=== PATIENT | male | born 1965 | race Caucasian/White ===

== ENCOUNTER 2019-09-16 17:05 | Emergency (ER) | payer BC, SELFPAY ==
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
[2019-09-16 17:08] VITALS: BP 157/98; PULSE 75; RESP 16; TEMP 36.7; O2SAT 100
[2019-09-16 18:05] VITALS: BP 155/94; PULSE 66; RESP 17; O2SAT 99
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
[2019-09-16 20:41] VITALS: BP 177/110; PULSE 67; RESP 15; O2SAT 98
[2019-09-16 22:56] VITALS: BP 168/89; PULSE 85; RESP 18; O2SAT 100
[2019-09-16 23:20] VITALS: BP 174/99; PULSE 56; RESP 19; O2SAT 97
[2019-09-17 00:40] VITALS: BP 166/81; PULSE 55; O2SAT 99
[2019-09-17 01:53] VITALS: BP 166/90; RESP 16
[2019-09-17] MEDS: levETIRAcetam 500 MG TABLET PO (01:53)
[2019-09-17 01:54] VITALS: BP 166/90
== END 2019-09-17 01:20 | disposition home or self-care (01) ==
PROVIDERS: Emergency Provider Emergency Medicine
DX: S06.5X0A Traumatic subdural hemorrhage without loss of consciousness, initial encounter (principal); S00.81XA Abrasion of other part of head, initial encounter; V17.4XXA Pedal cycle driver injured in collision with fixed or stationary object in traffic accident, initial encounter
CPT/HCPCS: 70450; 70486; 99284; A9270

== ENCOUNTER 2020-12-03 15:50 | Emergency (ER) | payer BC, SELFPAY ==
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
--- NOTE | ~2020-12-03 | XR_ITS ---
EXAMINATION: XR shoulder LT min 2V DATE: 12/03/2020 16:13 INDICATION: Left shoulder pain. TECHNIQUE: 4 views of left shoulder were obtained. COMPARISON: None. FINDINGS: Bone alignment is normal. No fracture. Joint spaces are well maintained. IMPRESSION: 1. No fracture. Reviewed, dictated and finalized at location A. IMPRESSION: 1. No fracture.
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
--- NOTE | ~2020-12-03 | XR_ITS ---
EXAMINATION: XR ribs LT 2V w CXR 2V DATE: 12/03/2020 16:13 INDICATION: Left chest injury. TECHNIQUE: Frontal and lateral views of the chest and 3 views of the left ribs were obtained. COMPARISON: None. FINDINGS: CHEST TWO VIEWS: There is no pneumonia, pleural effusion, or pneumothorax. The heart size is normal. LEFT RIBS: There is no rib fracture. IMPRESSION: 1. No rib fracture. Reviewed, dictated and finalized at location A. IMPRESSION: 1. No rib fracture.
[2020-12-03 15:53] VITALS: BP 181/100; PULSE 79; RESP 20; TEMP 37; O2SAT 99
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
[2020-12-03 17:48] VITALS: BP 166/82; PULSE 77; RESP 16; O2SAT 100
== END 2020-12-03 17:50 | disposition home or self-care (01) ==
PROVIDERS: Emergency Provider Nurse Practitioner; PCP Internal Medicine
DX: S09.90XA Unspecified injury of head, initial encounter (principal); S49.92XA Unspecified injury of left shoulder and upper arm, initial encounter; R07.81 Pleurodynia; R03.0 Elevated blood-pressure reading, without diagnosis of hypertension; V18.0XXA Pedal cycle driver injured in noncollision transport accident in nontraffic accident, initial encounter; Y93.55 Activity, bike riding
CPT/HCPCS: 70450; 71046; 71100; 72125; 73030; 99284

== ENCOUNTER 2022-04-20 17:18 | Emergency (ER) | payer BC, SELFPAY ==
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
[2022-04-20 17:52] VITALS: BP 166/94; PULSE 66; RESP 14; TEMP 36.7; O2SAT 98
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
[2022-04-20 20:25] VITALS: BP 181/114; PULSE 70; RESP 16; O2SAT 97
== END 2022-04-20 20:26 | disposition home or self-care (01) ==
PROVIDERS: Emergency Provider Physician Assistant; PCP Internal Medicine
DX: S70.02XA Contusion of left hip, initial encounter (principal); V18.0XXA Pedal cycle driver injured in noncollision transport accident in nontraffic accident, initial encounter
CPT/HCPCS: 73502; 99283

== ENCOUNTER 2023-02-03 20:13 | Emergency (ER) | payer BC, SELFPAY ==
--- NOTE | ~2023-02-03 | XR_ITS ---
EXAMINATION: XR chest 1V portable DATE: 02/04/2023 02:09 INDICATION: Weakness. Hypertension. TECHNIQUE: A single frontal view of the chest was obtained. COMPARISON: Chest 2 views 12/03/2020 FINDINGS: There is mild atelectasis at right lung base. No pleural effusion or pneumothorax. The hear t size is normal. IMPRESSION: 1. Mild atelectasis at right lung base. Reviewed, dictated and finalized at location E.
[2023-02-03 20:26] VITALS: BP 195/92; PULSE 61; RESP 18; TEMP 36.4; O2SAT 99
[2023-02-03 22:23] VITALS: BP 176/113; PULSE 52; RESP 18; TEMP 36.4; O2SAT 99
--- NOTE | 2023-02-04 01:45 | ECG_ITS ---
Measurements Intervals Barre Rate: 55 P: 51 TN: 182 QRS: 27 QRSD: 94 T: 25 QT: 419 QTc: 404 Interpretive Statements SINUS BRADYCARDIA INCOMPLETE RIGHT BUNDLE BRANCH BLOCK VOLTAGE CRITERIA FOR LVH BASELINE ARTIFACT- V2 BORDERLINE ECG NO PREVIOUS ECG AVAILABLE FOR COMPARISON Electronically Signed On 02-04-2023 7:30:35 CDT by Glenn Osorio D.O.
--- NOTE | 2023-02-04 01:45 | ED.RECABL ---
HPI - Recheck/Abnormal Lab/Rx General Chief Complaint: Recheck/Abnormal Lab/Rx Stated Complaint: htn 190s, shaky Time Seen by Provider: 02/04/23 01:21 History of Present Illness HPI narrative: 57 y/o M with a history of HTN reports for evaluation for elevated BP since yesterday. Pt states his BP is normally 140-150 systolic, however has been 170-190 since last night. Pt states he normally checks his blood pressure once a week, however took his blood pressure last night today because he felt like his blood pressure was high. He is reporting generalized body aches, generalized weakness, slight headache in the left side of his head, and paresthesias to his hands and feet. He is also reporting feeling shaky with some anxiety. He has a history of migraines and states this headache is not different from his normal headaches. He denies vision changes, focal numbness or weakness, chest pain or shortness of breath, abdominal pain, nausea, vomiting, diarrhea, dysuria or hematuria, back pain, neck pain, head or neck injury or trauma. The patient is currently taking supplements to treat his hypertension. Used to take lisinopril and discontinued it due to a cough, and then started metoprolol but discontinued because he did not like the way it made him feel. Related Data Allergies Allergy/AdvReac Type Severity Reaction Status Date / Time Sulfa (Sulfonamide Allergy Intermediate Dyspnea / Verified 04/20/22 19:31 Antibiotics) SOB Review of Systems Review of Systems: CONSTITUTIONAL: Denies fever, chills EYES: Denies visual changes, redness, or discharge. ENT: Denies rhinorrhea, congestion, sore throat, or otalgia. CARDIOVASCULAR: Denies chest pain, palpitations, or edema. RESPIRATORY: Denies cough or dyspnea. GASTROINTESTINAL: Denies abdominal pain, nausea, vomiting, or diarrhea. GENITOURINARY: Denies dysuria or hematuria. SKIN: Denies rash or itching. MUSCULOSKELETAL: Denies back pain, joint pain, or myalgia. NEUROLOGIC: See HPI PSYCHIATRIC: Denies anxiety or depression. [facility] Past Medical History Medical History Contusion of shoulder, left Patient denies significant medical history Vertigo Family History Family History Other Cerebrovascular accident Diabetes mellitus Hypertension Social History Social History Smoking status: Never smoker Alcohol intake: current Drinks per week: 5 Substance use: never Living arrangements: with family Gender identity (if verbalized by the patient): Male Exam Narrative: GENERAL: Well-appearing, in no acute distress. Patient resting comfortably in exam bed. He is pleasant and conversational. HEAD: Normocephalic EYES: PERRLA ENT: Nares clear. Mucous membranes moist. Oropharynx without tonsillar hypertrophy exudate or other lesions. NECK: Supple. No nuchal rigidity CHEST: No respiratory distress. Clear to auscultation, no adventitious breath sounds. HEART: Regular rate and rhythm. No murmur heard. Normal peripheral pulses. ABDOMEN: Soft, nontender, normal active bowel sounds. EXTREMITIES: Normal range of motion. No edema. SKIN: Warm, dry, no rash. NEURO: No focal deficits. Alert and oriented x3. PSYCH: Normal mood and affect. Course Vital Signs Vital signs: Vital Signs Temperature 97.6 F 02/03/23 20:26 Pulse Rate 61 02/03/23 20:26 Respiratory Rate 18 02/03/23 20:26 Blood Pressure 195/92 H 02/03/23 20:26 Pulse Oximetry 99 02/03/23 20:26 Oxygen Delivery Room Air 02/03/23 20:26 Temperature 97.6 F 02/03/23 22:23 Pulse Rate 56 L 02/04/23 02:44 Respiratory Rate 16 02/04/23 02:44 Blood Pressure 159/91 H 02/04/23 02:44 Pulse Oximetry 96 02/04/23 02:44 Oxygen Delivery Room Air 02/03/23 20:26 MDM - Recheck/Abnormal Lab/Rx MDM Narrative Medical deci
[2023-02-04] MEDS: LORazepam INJ (*CRX) 2 MG/ML VIAL 1 MG IV PUSH (02:37)
[2023-02-04] MEDS: SODIUM CHLORIDE 0.9% IV 1,000 ML 999 ML IV CONT (02:37)
[2023-02-04 02:44] VITALS: BP 159/91; PULSE 56; RESP 16; O2SAT 96
[2023-02-04 02:46] VITALS: BP 153/98; PULSE 71; RESP 16; O2SAT 94
[2023-02-04 02:47] LABS: Basophils Absolute Auto 0.1 K/mm3 (0.0-0.1); Eosinophils Absolute Auto 0.7 K/mm3 (0-0.3); Eosinophils Percent Auto 9.5 % (0-4.4); Hematocrit 43.3 % (42.0-52.0); Hemoglobin 15.2 g/dL (14.0-18.0); Immature Granulocyte Absolute 0.01 K/mm3 (0.00-0.031); Immature Granulocyte Percent A 0.1 % (0-0.5); Lymphocytes Absolute Auto 2.14 K/mm3 (0.9-3.2); Lymphocytes Percent Auto 31.4 % (18.3-44.2); Mean Corpuscular HGB Conc 35.1 g/dl (32-36); Mean Corpuscular Hemoglobin 33.3 pg (26-34); Mean Platelet Volume 9.3 fl (7.4-10.4); Monocytes Absolute Auto 0.8 K/mm3 (0.1-0.6); Monocytes Percent Auto 11.6 % (2.6-8.5); Neutrophils Absolute Auto 3.2 K/mm3 (1.3-6.7); Neutrophils Percent Auto 46.4 % (45.5-73.1); Platelet Count Result 247 k/mm3 (150-375); Red Blood Count 4.56 M/mm3 (4.6-6.20); Red Cell Distribution Width 12.2 % (11.5-14.5); White Blood Count 6.8 K/mm3 (4.5-10.0)
[2023-02-04 03:14] LABS: Alanine Aminotransferase 18 U/L (6-50); Alkaline Phosphatase 56 U/L (38-126); Anion Gap 2 mmol/L (8-16); Aspartate Amino Transferase 29 U/L (17-59); Bilirubin,Total 0.9 mg/dL (0.2-1.3); Blood Urea Nitrogen 14 mg/dL (9-20); Calcium 9.1 mg/dL (8.4-10.2); Carbon Dioxide 30 mmol/L (22-30); Chloride 103 mmol/L (98-107); Estimated CRCL calculation 63 ml/min; Estimated Glomerular Filt Rate > 60; Glucose 110 mg/dL (65-110); Potassium 4.2 mmol/L (3.4-5.0); Sodium 135 mmol/L (137-145)
[2023-02-04 03:19] LABS: Influenza A QL RT-PCR Negative (Negative); Influenza B QL RT-PCR Negative (Negative); SARS-CoV-2 RNA PCR Negative (Negative)
[2023-02-04 03:31] VITALS: BP 141/91; PULSE 68; RESP 16; O2SAT 98
== END 2023-02-04 04:10 | disposition home or self-care (01) ==
PROVIDERS: Emergency Provider Physician Assistant; PCP Internal Medicine
DX: I10 Essential (primary) hypertension (principal); R20.2 Paresthesia of skin; Z20.822 Contact with and (suspected) exposure to COVID-19
CPT/HCPCS: 36415; 71045; 80053; 85025; 87636; 93005; 96361; 96374; 99284; J2060; J7030

== ENCOUNTER 2023-02-06 20:59 | Emergency (ER) | payer BC, SELFPAY ==
--- NOTE | ~2023-02-06 | CT_ITS ---
Clinical Indication: Shortness of breath CT Scan of the Chest with Contrast: Technique: Contiguous sections were acquired throughout the chest after intravenous administration of 100 cc of Omnipaque 350. Dose reduction technique was used on this scan by utilizing automated expos ure control and iterative reconstruction technique. The dose-length product (DLP) was 241.14 mGy-cm. Findings: There is no evidence of any significant mediastinal, hilar or axillary lymphadenopathy. There is no f illing defect in the pulmonary arterial tree to suggest pulmonary embolus. There is no evidence of ao rtic dissection or aneurysm. There is no evidence of pleural or pericardial effusion. The lungs are clear. No pulmonary nodules or infiltrates are noted. Images through the upper abdomen reveal calcified gallstones. Impression: No evidence of pulmonary embolus, aortic dissection, or aortic aneurysm. Clear lungs. Cholelithiasis. Reviewed, dictated and finalized at [facility]. Impression: No evidence of pulmonary embolus, aortic dissection, or aortic aneurysm. Clear lungs. Cholelithiasis.
[2023-02-06 21:12] VITALS: BP 188/106; PULSE 58; RESP 20; TEMP 36.4; O2SAT 96
--- NOTE | 2023-02-06 21:21 | PC.NURSE ---
provider aware of patient's triage complaints and vital signs. no orders at this time. will recheck vitals in about 30 mins. patient aware to come to triage with any new changes
[2023-02-06 22:53] VITALS: BP 177/98; PULSE 48; RESP 14; O2SAT 98
[2023-02-06 22:54] VITALS: BP 177/98; PULSE 55; RESP 12; O2SAT 99
[2023-02-06 23:01] VITALS: BP 162/99; PULSE 50; RESP 12; O2SAT 100
[2023-02-06 23:15] VITALS: BP 176/97; PULSE 53; RESP 16; O2SAT 99
[2023-02-06 23:46] VITALS: BP 157/101; PULSE 56; RESP 12; O2SAT 98
[2023-02-07] VITALS (10 sets, daily range): BP systolic 130–170; BP diastolic 56–106; PULSE 51–74; RESP 13–17; O2SAT 97–100
--- NOTE | 2023-02-07 00:54 | ED.GENADULT ---
HPI - General Adult General Chief complaint: Recheck/Abnormal Lab/Rx Stated complaint: high blood pressure Time Seen by Provider: 02/06/23 22:45 History of Present Illness HPI narrative: Patient presents to the emergency department with his with concerns for persistent hypertension. He notes he had a history of high blood pressure but did not want to take medications for it he did not react well to the lisinopril or metoprolol. He was also having episodes of shortness of breath. Denies a sensation of feeling like he cannot take a full breath. However he used to compete in mountain biking competitions and states he gets too short of breath now to do so. He still rides his bike regularly. His primary care provider had ordered a PFT that was unremarkable. He was in the emergency department 3 days ago for similar symptoms. Labs and chest x-ray normal. His symptoms were relieved with Ativan at that time. He also has paresthesias that move around with his shortness of breath. Patient is concerned about his blood pressure and his health. He was reassured however still worried. His significant other is also worried about his blood pressure and they are wondering why it is consistently elevated. Is very pleasant. And is in no distress. Related Data Allergies Allergy/AdvReac Type Severity Reaction Status Date / Time Sulfa (Sulfonamide Allergy Intermediate Dyspnea / Verified 02/06/23 22:56 Antibiotics) SOB Review of Systems Review of Systems: Review of systems negative except what is documented in the HPI PMFSH Past Medical History Medical History Contusion of shoulder, left Patient denies significant medical history Vertigo Family History Family History Other Cerebrovascular accident Diabetes mellitus Hypertension Social History Social History Smoking status: Never smoker Alcohol intake: current Drinks per week: 5 Substance use: never Living arrangements: with family Gender identity (if verbalized by the patient): Male Exam Narrative: GENERAL: Well-appearing, well-nourished, and in no acute distress. HEAD: Normocephalic, atraumatic. EYES: PERRLA and EOMI. ENT: Nares clear, no rhinorrhea or epistaxis. Mucous membranes moist. NECK: Supple. CHEST: Clear to auscultation. No respiratory distress. HEART: Regular rate and rhythm. ABDOMEN: Soft, nontender, nondistended. EXTREMITIES: Normal range of motion. No edema. SKIN: Warm, dry, no rash. NEURO: No focal deficits. Alert and oriented x3. PSYCH: Normal mood and affect. Course Course Emergency Course: Differential diagnosis includes but not limited to anxiety, hyper awareness of health, PE, pneumonia, congestive heart failure Recent evaluation unremarkable but patient and family very concerned. Additional work-up including D-dimer procalcitonin and BNP added to look for possible cause of his shortness of breath Telemetry ordered due to bradycardia and shortness of breath to evaluate for dysrhythmias. Evaluated by myself. Rhythm sinus ciro Rate 56 Vital Signs Vital signs: Vital Signs Temperature 36.4 C 02/06/23 21:12 Pulse Rate 58 L 02/06/23 21:12 Respiratory Rate 20 02/06/23 21:12 Blood Pressure 188/106 H 02/06/23 21:12 Pulse Oximetry 96 02/06/23 21:12 Oxygen Delivery Room Air 02/06/23 21:12 Temperature 36.4 C 02/06/23 21:12 Pulse Rate 60 02/07/23 03:36 Respiratory Rate 15 02/07/23 03:36 Blood Pressure 130/56 L 02/07/23 03:36 Pulse Oximetry 98 02/07/23 03:36 Oxygen Delivery Room Air 02/06/23 22:53 Medical Decision Making [facility] Narrative Medical decision making narrative: DDimer elevated, ct chest ordered Repeat blood pressure improved CT chest negative for PE, incidental findings gallstones Vital Signs
[2023-02-07 00:56] LABS: D Dimer 0.61 ug/mL (<0.48)
[2023-02-07 01:04] LABS: NT Pro B Type Natriuretic Pept < 20 pg/mL (19.9-100); Troponin I < 0.012 ng/mL (0.000-0.034)
[2023-02-07 03:51] LABS: Troponin I < 0.012 ng/mL (0.000-0.034)
[2023-02-07] MEDS: diphenhydrAMINE HCl INJ 50 MG/ML VIAL 25 MG IV PUSH (05:08)
[2023-02-07] MEDS: METOCLOPRAMIDE HCL INJ 10 MG/2 ML VIAL IV PUSH (05:08)
[2023-02-07] MEDS: IBUPROFEN 600 MG TABLET PO (05:08)
== END 2023-02-07 05:41 | disposition home or self-care (01) ==
PROVIDERS: Emergency Provider Emergency Medicine; PCP Internal Medicine
DX: I10 Essential (primary) hypertension (principal); R06.00 Dyspnea, unspecified; K80.20 Calculus of gallbladder without cholecystitis without obstruction
CPT/HCPCS: 36415; 71275; 83880; 84484; 85380; 96374; 96375; 99284; A9270; J1200; J2765; Q9967

== ENCOUNTER 2023-04-24 23:16 | Emergency (ER) | payer BC, SELFPAY ==
--- NOTE | ~2023-04-24 | XR_ITS ---
EXAMINATION: XR chest 2V DATE: 04/24/2023 23:37 INDICATION: Tachycardia. Hypertension. TECHNIQUE: Frontal and lateral views of the chest were obtained. COMPARISON: Chest single view 02/04/2023, chest CT 02/07/2023 FINDINGS: There is no pneumonia, pleural effusion, or pneumothorax. The heart size is normal. IMPRESSION: 1. No acute cardiopulmonary disease. Reviewed, dictated and finalized at location E. AGING ASSEMBLER
--- NOTE | 2023-04-24 23:19 | ECG_ITS ---
Measurements Intervals [place] Rate: 61 P: 69 ID: 162 QRS: 52 QRSD: 98 T: 44 QT: 429 QTc: 434 Interpretive Statements SINUS RHYTHM POSSIBLE LEFT ATRIAL ENLARGEMENT [-0.1mV P WAVE IN V1/V2] POSSIBLE RIGHT VENTRICULAR CONDUCTION DELAY [RSR (QR) IN V1/V2] POSSIBLE LEFT VENTRICULAR HYPERTROPHY [VOLTAGE CRITERIA PLUS LAE OR QRS WIDENING] SMALL U WAVES ARE PRESENT, CONSIDER HYPOKALEMIA COMPARED TO ECG 02/04/2023 02:50:42 SINUS RHYTHM NOW PRESENT T-WAVE ABNORMALITY MORE PRONOUNCED Electronically Signed On 04-25-2023 13:27:35 VEHICLE WASHER by Angelica Hawk M.D.
[2023-04-24 23:23] VITALS: BP 172/74; PULSE 68; RESP 16; TEMP 36.2; O2SAT 98
[2023-04-24 23:35] LABS: Basophils Absolute Auto 0.1 K/mm3 (0.0-0.1); Basophils Percent Auto 1.3 % (0.2-1.2); Eosinophils Absolute Auto 1.3 K/mm3 (0-0.3); Hematocrit 43.4 % (42.0-52.0); Hemoglobin 15.2 g/dL (14.0-18.0); Immature Granulocyte Absolute 0.01 K/mm3 (0.00-0.031); Immature Granulocyte Percent A 0.1 % (0-0.5); Lymphocytes Absolute Auto 2.65 K/mm3 (0.9-3.2); Lymphocytes Percent Auto 31.4 % (18.3-44.2); Mean Corpuscular Hemoglobin 32.6 pg (26-34); Mean Corpuscular Volume 93.1 fl (80-100); Mean Platelet Volume 9.2 fl (7.4-10.4); Monocytes Absolute Auto 0.8 K/mm3 (0.1-0.6); Monocytes Percent Auto 9.7 % (2.6-8.5); Neutrophils Absolute Auto 3.6 K/mm3 (1.3-6.7); Neutrophils Percent Auto 42.5 % (45.5-73.1); Platelet Count Result 265 k/mm3 (150-375); Red Blood Count 4.66 M/mm3 (4.6-6.20); Red Cell Distribution Width 12.1 % (11.5-14.5); White Blood Count 8.4 K/mm3 (4.5-10.0)
[2023-04-24 23:46] LABS: Alanine Aminotransferase 22 U/L (6-50); Albumin Level 4.5 g/dL (3.5-5.1); Alkaline Phosphatase 58 U/L (38-126); Anion Gap 8 mmol/L (8-16); Aspartate Amino Transferase 37 U/L (17-59); Bilirubin,Total 0.6 mg/dL (0.2-1.3); Blood Urea Nitrogen 17 mg/dL (9-20); Calcium 9.9 mg/dL (8.4-10.2); Carbon Dioxide 26 mmol/L (22-30); Chloride 103 mmol/L (98-107); Estimated CRCL calculation 58 ml/min; Estimated Glomerular Filt Rate > 60; Glucose 107 mg/dL (65-110); Lipase 69 U/L (23-300); Potassium 4.5 mmol/L (3.4-5.0); Sodium 137 mmol/L (137-145)
[2023-04-24 23:46] LABS: Partial Thromboplastin Time 30.2 SECONDS (22.3-36.8)
[2023-04-24 23:57] LABS: Troponin I < 0.012 ng/mL (0.000-0.034)
[2023-04-25 01:53] VITALS: BP 171/93; PULSE 65; PULSE 67; RESP 12; TEMP 36.6; O2SAT 100
[2023-04-25 01:54] VITALS: O2SAT 100
[2023-04-25 02:44] VITALS: BP 152/97; PULSE 32; RESP 14
[2023-04-25 03:05] LABS: Troponin I < 0.012 ng/mL (0.000-0.034)
--- NOTE | 2023-04-25 03:22 | ED.CHESTPAIN ---
HPI - Chest Pain General Chief Complaint: Chest Pain Stated Complaint: high blood pressure Time Seen by Provider: 04/25/23 02:06 History of Present Illness HPI narrative: Patient is a 57-year-old male with history of hypertension presenting with chest pain. Patient states that over the last several months he has had similar episodes where he has left-sided chest pain associated with tingling in his extremities. States that his hands and feet very cold lately which is not normal for him. He has seen Cardiology who started him on amlodipine. He actually had a stress test scheduled for today which he canceled previously as he thought his symptoms had resolved. States that he sometimes has significant palpitations. He denies shortness of breath, diaphoresis, nausea or vomiting, leg swelling. No weakness, vision or speech changes. No further complaints. Related Data Allergies Allergy/AdvReac Type Severity Reaction Status Date / Time Sulfa (Sulfonamide Allergy Intermediate Dyspnea / Verified 02/06/23 22:56 Antibiotics) SOB Review of Systems Review of Systems: All systems reviewed & are unremarkable except as noted in HPI and below PMFSH Past Medical History Medical History Contusion of shoulder, left Patient denies significant medical history Vertigo Family History Family History Other Cerebrovascular accident Diabetes mellitus Hypertension Social History Social History Smoking status: Never smoker Alcohol intake: current Drinks per week: 5 Substance use: never Living arrangements: with family Gender identity (if verbalized by the patient): Male Exam Narrative: GENERAL: Well-appearing, In no acute distress, pleasant and cooperative HEAD: Normocephalic, atraumatic. EYES: PERRLA and EOMI. ENT: grossly unremarkable NECK: Supple. CHEST: Clear to auscultation. No respiratory distress. HEART: Regular rate and rhythm. No murmur heard. Normal peripheral pulses. ABDOMEN: Soft, nontender, nondistended EXTREMITIES: Normal range of motion. No edema. SKIN: Warm, dry, no rash. NEURO: No focal deficits. Alert and oriented x3. PSYCH: Normal mood and affect. Course Vital Signs Vital signs: Vital Signs Temperature 97.1 F L 12/04/23 23:23 Pulse Rate 68 04/24/23 23:23 Respiratory Rate 16 04/24/23 23:23 Blood Pressure 172/74 H 04/24/23 23:23 Pulse Oximetry 98 04/24/23 23:23 Oxygen Delivery Room Air 04/24/23 23:23 Temperature 97.9 F 04/25/23 01:53 Pulse Rate 32 L 04/25/23 02:44 Respiratory Rate 14 04/25/23 02:44 Blood Pressure 152/97 H 04/25/23 02:44 Pulse Oximetry 100 04/25/23 01:54 Oxygen Delivery Room Air 04/25/23 01:54 MDM - Chest Pain MDM Narrative Medical decision making narrative: 57-year-old male presenting with chest pain earlier today. Patient is hypertensive, otherwise vitals are within normal limits. Exam is unremarkable. EKG per my interpretation shows normal sinus rhythm, normal axis and intervals, nonspecific T-wave changes, no ST elevations or depressions. It appears similar to prior from January. Blood work is unremarkable. Troponins undetectable x2. Feel he is safe for outpatient management. Advised that he call his gender studies professor and reschedule his stress test. Also advised PCP follow-up. Appropriate return precautions given. Patient was understanding and agreeable with plan. Discharged in stable condition. Differential Diagnosis Differential diagnosis: Likely fracture of rib, atypical chest pain, st elevation myocardial infarction, costochondritis, chest pain and other Medical Records Data Attestation: I reviewed the patient's medical records. Lab Data Attestation: I reviewed the patient's lab results. 04/24/23 23:29 04/24/23 23:3
== END 2023-04-25 03:34 | disposition home or self-care (01) ==
PROVIDERS: Emergency Provider Emergency Medicine; PCP Internal Medicine
DX: R07.89 Other chest pain (principal); I10 Essential (primary) hypertension; R94.31 Abnormal electrocardiogram [ECG] [EKG]
CPT/HCPCS: 36415; 71046; 80053; 83690; 84484; 85025; 85610; 85730; 93005; 99284

== ENCOUNTER 2023-05-25 03:55 | Emergency (ER) | payer BC, SELFPAY ==
--- NOTE | ~2023-05-25 | XR_ITS ---
Clinical Indication: Hypertension PA and lateral views of the chest: Comparison: 04/24/2023 Findings: The lungs are clear, without evidence of focal consolidation or pleural effusion. Cardiome diastinal silhouette is within normal limits. Bones and soft tissues are unremarkable. Impression: Normal chest. Reviewed, dictated and finalized at location . BUILDER Impression: Normal chest.
[2023-05-25 03:58] VITALS: BP 159/92; PULSE 67; RESP 18; TEMP 37.1; O2SAT 96
--- NOTE | 2023-05-25 04:07 | ECG_ITS ---
Measurements Intervals [place] Rate: 63 P: 61 [place]: 175 QRS: 45 QRSD: 95 T: 32 QT: 390 QTc: 401 Interpretive Statements SINUS RHYTHM INCOMPLETE RIGHT BUNDLE BRANCH BLOCK VOLTAGE CRITERIA FOR LVH NONSPECIFIC T-WAVE ABNORMALITY- INFERIOR LEADS BORDERLINE ECG COMPARED TO ECG 04/24/2023 23:23:57 T-WAVE ABNORMALITY NOW PRESENT Electronically Signed On 05-25-2023 6:57:18 PCTS by Glenn Osorio D.O.
[2023-05-25 04:24] LABS: Basophils Absolute Auto 0.1 K/mm3 (0.0-0.1); Basophils Percent Auto 1.3 % (0.2-1.2); Eosinophils Absolute Auto 0.6 K/mm3 (0-0.3); Eosinophils Percent Auto 8.8 % (0-4.4); Hematocrit 44.3 % (42.0-52.0); Hemoglobin 15.4 g/dL (14.0-18.0); Immature Granulocyte Absolute 0.01 K/mm3 (0.00-0.031); Immature Granulocyte Percent A 0.1 % (0-0.5); Lymphocytes Percent Auto 29.9 % (18.3-44.2); Mean Corpuscular HGB Conc 34.8 g/dl (32-36); Mean Corpuscular Hemoglobin 31.8 pg (26-34); Mean Corpuscular Volume 91.5 fl (80-100); Mean Platelet Volume 9.2 fl (7.4-10.4); Monocytes Absolute Auto 0.7 K/mm3 (0.1-0.6); Monocytes Percent Auto 11.1 % (2.6-8.5); Neutrophils Absolute Auto 3.3 K/mm3 (1.3-6.7); Neutrophils Percent Auto 48.8 % (45.5-73.1); Platelet Count Result 274 k/mm3 (150-375); Red Blood Count 4.84 M/mm3 (4.6-6.20); White Blood Count 6.7 K/mm3 (4.5-10.0)
[2023-05-25 04:37] LABS: Alanine Aminotransferase 20 U/L (6-50); Albumin Level 4.1 g/dL (3.5-5.1); Alkaline Phosphatase 59 U/L (38-126); Anion Gap 7 mmol/L (8-16); Aspartate Amino Transferase 27 U/L (17-59); Bilirubin,Total 0.8 mg/dL (0.2-1.3); Blood Urea Nitrogen 16 mg/dL (9-20); Calcium 9.2 mg/dL (8.4-10.2); Carbon Dioxide 25 mmol/L (22-30); Chloride 105 mmol/L (98-107); Estimated CRCL calculation 63 ml/min; Estimated Glomerular Filt Rate > 60; Glucose 107 mg/dL (65-110); Lipase 58 U/L (23-300); Potassium 3.9 mmol/L (3.4-5.0); Prothrombin Time 13.5 Seconds (11.1-14.7); Sodium 137 mmol/L (137-145)
[2023-05-25 04:38] LABS: Partial Thromboplastin Time 32.6 SECONDS (22.3-36.8)
[2023-05-25 04:48] LABS: Troponin I < 0.012 ng/mL (0.000-0.034)
[2023-05-25 05:21] VITALS: PULSE 61
[2023-05-25 05:24] VITALS: BP 157/82; PULSE 61; RESP 17; O2SAT 97
--- NOTE | 2023-05-25 05:56 | ED.GENADULT ---
HPI - General Adult General Chief complaint: Unspecified <Dilan Diaz DO - Last Filed: 05/25/23 07:33> Stated complaint: numbness <Dilan Diaz DO - Last Filed: 05/25/23 07:33> Time Seen by Provider: 05/25/23 04:08 <Dilan Diaz DO - Last Filed: 05/25/23 07:33> Source: patient <Dilan Diaz DO - Last Filed: 05/25/23 07:33> Limitations: no limitations <Dilan Diaz DO - Last Filed: 05/25/23 07:33> History of Present Illness HPI narrative: Patient is a 57-year-old male presents to the emergency department complaining of neuropathy . patient states for almost a year now he has been experiencing neuropathy in his hands and feet and is currently seeing his primary care physician about this who is working on getting him into a neurologist and in next appointment available his aunt for many months. Patient has not been taking any medications for his neuropathy and is unsure as to what is causing it states that he is getting worked up as an outpatient for possible diabetes but has no history of diabetes. Patient denies any new or change medications. Patient denies alcohol consumption. Patient denies chest pain, shortness of breath, cough, fever, recent injuries, recent illness, sore throat, nasal congestion, dysuria, hematuria, diarrhea, weakness, nausea, vomiting. Patient states that he is overall feeling hopeless and is having passive thoughts of ending his life without a specific plan and no history of drowning herself in the past. Patient denies any history of psychiatric illness has never seen a psychiatrist. Patient denies any plans for wanting to harm himself rather he is just feeling hopeless as his neuropathy is often keeping him up at night. patient denies homicidal ideations. Patient denies illicit drug use. <DO Yanique Luong Last Filed: 05/25/23 07:33> Related Data Allergies/adverse reactions: Allergies Allergy/AdvReac Type Severity Reaction Status Date / Time Sulfa (Sulfonamide Allergy Intermediate Dyspnea / Verified 02/06/23 22:56 Antibiotics) SOB <Dilan Diaz DO - Last Filed: 05/25/23 07:33> Review of Systems Review of Systems: A 10 system review of systems was completed on the patient and is negative except for what is stated in the HPI. Nursing and ancillary documentation was reviewed. <Dilan Diaz DO - Last Filed: 05/25/23 07:33> PMFSH Past Medical History Medical History: Medical History Contusion of shoulder, left Patient denies significant medical history Vertigo <Dilan Diaz DO - Last Filed: 05/25/23 07:33> Family History Family History: Family History Other Cerebrovascular accident Diabetes mellitus Hypertension <Dilan Diaz DO - Last Filed: 05/25/23 07:33> Social History Social History: Social History Smoking status: Never smoker Alcohol intake: current Drinks per week: 5 Substance use: never Living arrangements: with family Gender identity (if verbalized by the patient): Male <Dilan Diaz DO - Last Filed: 05/25/23 07:33> Comments At time of signature, I have reviewed and agree with nursing past medical, surgical, social and family history unless otherwise noted. Please see the nursing chart for further information. There is no relevant family history pertinent to the presenting complaint. <Dilan Diaz DO - Last Filed: 05/25/23 07:33> Exam Narrative: CONST: No acute distress. Well nourished. HENMT: Head is normocephalic and atraumatic. Tachy mucous membranes. No posterior oropharynx erythema. EYES: No conjunctival icterus, injection, or pallor. PERRL. NECK: No meningeal signs. RESP: Able to speak in full sentences. Normal respiratory effort. CT
[2023-05-25] MEDS: SODIUM CHLORIDE 0.9% IV 1,000 ML 999 ML IV CONT (06:16)
[2023-05-25] MEDS: GABAPENTIN 300 MG CAPSULE PO (06:16)
[2023-05-25 06:42] LABS: Appearance Urine Clear (Clear); Bilirubin Urine Negative (Negative); Blood Urine Negative (Negative); Color Urine Yellow (Yellow); Glucose Urine UA Negative (Negative); Ketones Urine Trace mg/dL (Negative); Leukocyte Esterase Ur Negative LEU/UL (Negative); Nitrate Urine Negative (Negative); Protein Urine Negative (Negative); Specific Grav Ur 1.013 (1.001-1.035); Urobilinogen Urine 0.2 mg/dL (<2.0)
[2023-05-25 06:47] LABS: Ethanol < 10 mg/dL (<10)
[2023-05-25 06:52] LABS: Magnesium 2.2 mg/dL (1.6-2.3)
[2023-05-25 07:01] LABS: Add Urine Microscopic? NO
[2023-05-25 07:07] VITALS: BP 155/96; PULSE 57; RESP 16; O2SAT 97
--- NOTE | 2023-05-25 07:22 | ECG_ITS ---
Measurements Intervals [place] Rate: 59 P: 59 ND: 176 QRS: 40 QRSD: 90 T: 20 QT: 402 QTc: 399 Interpretive Statements SINUS BRADYCARDIA INCOMPLETE RIGHT BUNDLE BRANCH BLOCK VOLTAGE CRITERIA FOR LVH BORDERLINE T WAVE ABNORMALITY- INFERIOR LEADS BORDERLINE ECG COMPARED TO ECG 05/25/2023 04:14:17 SINUS BRADYCARDIA NOW PRESENT Electronically Signed On 05-25-2023 7:40:16 BAILER TENDERS SUPERVISOR by Glenn Osorio D.O.
[2023-05-25 07:39] LABS: Amphetamine Screen Urine Negative (Negative); Barbiturate Screen Urine Negative (Negative); Benzodiazepines Screen Urine Negative (Negative); Cannabinoid Screen Urine Negative (Negative); Cocaine Screen Urine Negative (Negative); Methadone Screen Urine Negative (Negative); Opiate Screen Urine Negative (Negative); Phencyclidine Screen Urine Negative (Negative)
[2023-05-25 08:11] LABS: Influenza A QL RT-PCR Negative (Negative); Influenza B QL RT-PCR Negative (Negative); RSV RNA, RT-PCR Negative (Negative); SARS-CoV-2 RNA PCR Negative (Negative)
[2023-05-25 09:50] VITALS: BP 162/99; PULSE 61; RESP 16; O2SAT 98
== END 2023-05-25 09:50 | disposition home or self-care (01) ==
PROVIDERS: Emergency Provider Student in an Organized Health Care Education/Training Program; PCP Internal Medicine
DX: G62.9 Polyneuropathy, unspecified (principal); R45.851 Suicidal ideations; Z11.52 Encounter for screening for COVID-19; I45.10 Unspecified right bundle-branch block; R94.31 Abnormal electrocardiogram [ECG] [EKG]; R00.1 Bradycardia, unspecified
CPT/HCPCS: 36415; 71046; 80053; 80307; 81003; 82607; 82746; 83690; 83735; 84443; 84484; 85025; 85610; 85730; 87637; 93005; 96360; 99284; A9270; J7030